=== PATIENT | male | born 1990 | race Hispanic/Latino ===

== ENCOUNTER 2019-10-27 12:09 | Emergency (ER) | payer SELFPAY ==
[2019-10-27 14:17] LABS: Absolute Lymphocytes (CBC) 2.4 K/uL (0.7-4.9); Basophils % 0.9 % (0-1.3); Lymphocytes % 38.5 % (15.3-44.8); MPV 10.3 fL (7.6-11.3); RBC Red Blood Cell Count 4.56 M/uL (4.33-5.43)
[2019-10-27 14:20] LABS: Protime INR 0.97
--- NOTE | 2019-10-27 14:26 | RAD REPORT ---
EXAM DESCRIPTION: RAD - Chest Single View - 10/27/2019 2:18 pm CLINICAL HISTORY: CHEST PAIN TECHNIQUE: AP portable chest image was obtained 10/27/2019 2:18 pm . FINDINGS: Lungs are clear. Heart and vasculature are normal. No measurable pleural effusion and no p neumothorax. No acute bony abnormality seen. No acute aortic findings suspected. IMPRESSION: No acute cardiopulmonary process.
[2019-10-27 14:43] LABS: ALT/SGPT 37 U/L (12-78); AST/SGOT 20 U/L (15-37); Albumin 4.1 g/dL (3.4-5.0); Alkaline Phosphatase 73 U/L (45-117); BUN Blood Urea Nitrogen 17 mg/dL (7-18); Bicarbonate 28 mmol/L (21-32); Bilirubin Direct < 0.1 mg/dL (0-0.2); Bilirubin Total 0.4 mg/dL (0.2-1.0); Glucose Level 90 mg/dL (74-106); Magnesium 2.4 mg/dL (1.8-2.4); NT PRO-BNP 8 pg/mL (<125); Potassium 3.6 mmol/L (3.5-5.1); Protein, Total 7.5 g/dL (6.4-8.2); Sodium Level 142 mmol/L (136-145); Troponin (Emerg Dept Use Only) < 0.02 ng/mL (0.0-0.045)
--- NOTE | 2019-10-27 15:42 | EDPHYS ---
Physician Documentation [facility] Name: Jai Alvarez Age: 29 yrs Sex: Male : 1990 Arrival Date: 10/27/2019 Time: 12:12 Bed 25 Private MD: ED Physician Clark Pablo HPI: 10/26 15:32 This 29 yrs old Male presents to ER via Ambulatory with complaints of Chest [facility] Pain. 15:32 The patient or guardian reports chest pain that is located primarily in the anterior [facility] chest wall. The pain radiates to the left scapula. Associated signs and symptoms: Pertinent negatives: abdominal pain, recent travel, shortness of breath, vomiting. The chest pain is described as aching, sharp. Duration: The patient or guardian reports a single episode, that is still ongoing. This is a 29 year old male with no chronic medical conditions that presents to the ED with complaints of left anterior chest pain which worsen on deep inspiration and movement of the left arm. 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 Denies recent surgery, leg swelling, hemoptysis, exogenous estrogen use. . Historical: - Allergies: 13:00 No Known Allergies; ca1 - Home Meds: 13:00 None [Active]; ca1 - PMHx: 13:00 None; ca1 - PSHx: 13:00 Cholecystectomy; ca1 - Immunization history:: Adult Immunizations. - Social history:: Smoking status: Patient reports the use of cigarette tobacco products, denies chronic smoking, but will smoke occasionally. ROS: 15:32 Constitutional: Negative for fever, chills, and weight loss. jmm 15:32 Respiratory: Negative for shortness of breath, cough, wheezing, and pleuritic chest pain, Abdomen/GI: Negative for abdominal pain, nausea, vomiting, diarrhea, and constipation, Neuro: Negative for headache, weakness, numbness, tingling, and seizure. 15:32 Cardiovascular: Positive for chest pain. 15:32 All other systems are negative. Exam: 15:32 Constitutional: This is a well developed, well nourished patient who is awake, alert, jmm and in no acute distress. Head/Face: atraumatic. Eyes: EOMI, no conjunctival erythema appreciated ENT: Moist Mucus Membranes Neck: Trachea midline, Supple Chest/axilla: Normal chest wall appearance and motion. 15:32 Abdomen/GI: Non distended, soft Back: Normal ROM Skin: General appearance color normal MS/ Extremity: Moves all extremities, no obvious deformities appreciated, no edema noted to the lower extremities Neuro: Awake and alert, normal gait Psych: Behavior is normal, Mood is normal, Patient is cooperative and pleasant 15:32 Chest/axilla: chest pain is reproduce able on movement of the arm, scapular pain is reproduced by movement of the arm. . 15:32 Cardiovascular: Rate: normal, Rhythm: regular. 15:32 Respiratory: the patient does not display signs of respiratory distress, Respirations: normal, Breath sounds: are clear throughout. 15:32 ECG was reviewed by the Attending Physician. [facility] Vital Signs: 12:55 BP 118 / 70; Pulse 64; Resp 15 S; Temp 97.7(TE); Pulse Ox 98% on R/A; Weight 104.33 kg ca1 (R); Height 6 ft. 1 in. (185.42 cm) (R); Pain 5/10; 13:46 BP 118 / 83; Pulse 49; Resp 17 S; Pulse Ox 95% on R/A; Pain 5/10; jl7 14:11 BP 121 / 84; Pulse 56; Resp 17; Pulse Ox 97% ; Pain 5/10; ca1 15:05 BP 120 / 82; Pulse 71; Resp 17; Pulse Ox 98% ; Pain 3/10; jl7 15:30 BP 127 / 83; Pulse 86; Resp 17; Pulse Ox 96% ; jl7 12:55 Body Mass Index 30.34 (104.33 kg, 185.42 cm) ca1 MDM: 15:22 Patient medically screened. [facility] 15:39 Data reviewed: vital signs, nurses notes. Counseling: I had a detailed discussion with [facility] the patient and/or guardian regarding: the historical points, exam findings, and any diagnostic results supporting the discharge/admit diagnosis, lab results, radiology results, the need for outpatient follow up, to return to the emergency department if symptoms worsen or persist or if there are any questions or concerns that arise at home. ED course: PERC NEGATIVE. Low likelihood for ACS. Pain is most likely MS. Patient advised to follow up with cardio for further evaluation and otherwise given strict return precautions. Patient understood and agrees with the plan of care. . 10/26 13:48 Order name: Basic Metabolic Panel; Complete Time: 15:10/26 13:48 Order name: CBC with Diff; Complete Time: :10/26 13:48 Order name: LFT's; Complete Time: 15:10/26 13:48 Order name: Magnesium; Complete Time: 15:10/26 13:48 Order name: NT PRO-BNP; Complete Time: 15:10/26 13:48 Order name: PT-INR; Complete Time: 15:10/26 13:01 Order name: EKG; Complete Time: 13:10/26 13:01 Order name: EKG - Nurse/Tech; Complete Time: 13:10/26 13:48 Order name: Troponin (emerg Dept Use Only); Complete Time: 15:10/26 13:48 Order name: XRAY Chest (1 view); Complete Time: 15:10/26 13:48 Order name: Cardiac monitoring; Complete Time: 14:10/26 13:48 Order name: IV Saline Lock; Complete Time: 14:10/26 13:48 Order name: Labs collected and sent; Complete Time: 14:10/26 13:48 Order name: O2 Per Protocol; Complete Time: 14:10/26 13:48 Order name: O2 Sat Monitoring; Complete Time: 14: EC:32 Rate is 59 beats/min. QRS Cameron is Normal. ME interval is normal. QRS interval is jmm normal. QT interval is normal. No Q waves. T waves are Normal. No ST changes noted. Reviewed by me. Administered Medications: No medications were administered Disposition: 10/27 08:06 Co-signature as Attending Physician, Clark Pablo MD I agree with the assessment and kdr plan of care. Disposition: 10/27/19 15:41 Discharged to Home. Impression: Chest pain, unspecified. - Condition is Stable. - Discharge Instructions: Nonspecific Chest Pain. - Prescriptions for orphenadrine citrate 100 mg Oral Tablet Sustained Release - take 1 tablet by ORAL route 2 times per day As needed; 20 tablet. Medrol (Ryan) 4 mg Oral Tablets, Dose Pack - take 1 tablet by ORAL route as directed - follow package instructions; 1 packet. - Medication Reconciliation Form, Thank You Letter, Antibiotic Education, Prescription Opioid Use, Work release form form. - Follow up: Venkat Johnson MD; When: 2 - 3 days; Reason: Recheck today's complaints, Continuance of care, Re-evaluation by your physician. Signatures: Dispatcher [employer] EDMS Clark Pablo MD MD kdr Mickail, Joel, PA PA jmm Leal, Jahala, RN RN jl7 Belinda Hartman RN RN ca1 Corrections: (The following items were deleted from the chart) 10/26 16:05 15:41 10/27/2019 15:41 Discharged to Home. Impression: Chest pain, unspecified. jl7 Condition is Stable. Forms are Medication Reconciliation Form, Thank You Letter, Antibiotic Education, Prescription Opioid Use. Follow up: Venkat Johnson; When: 2 - 3 days; Reason: Recheck today's complaints, Continuance of care, Re-evaluation by your physician. zoraida
--- NOTE | 2019-10-27 15:42 | ER ---
Nurse's Notes [facility] Name: Jai Alvarez Age: 29 yrs Sex: Male : 1990 Arrival Date: 10/27/2019 Time: 12:12 Bed 25 Private MD: Diagnosis: Chest pain, unspecified Presentation: 10/26 12:55 Chief complaint: Patient states: Chest pain started at 0745 this morning, worse with ca1 deep breathing and movement. Reports lightheadedness with CP. Denies nausea, sweating. Denies cough, denies injury. Coronavirus screen: Client denies travel out of the [place] in the last 14 days. At this time, the client does not indicate any symptoms associated with coronavirus-19. Ebola Screen: Patient negative for fever greater than or equal to 101.5 degrees Fahrenheit, and additional compatible Ebola Virus Disease symptoms Patient denies exposure to infectious person. Patient denies travel to an Ebola-affected area in the 21 days before illness onset. No symptoms or risks identified at this time. Initial Sepsis Screen: Does the patient meet any 2 criteria? No. Patient's initial sepsis screen is negative. Does the patient have a suspected source of infection? No. Patient's initial sepsis screen is negative. Risk Assessment: Do you want to hurt yourself or someone else? Patient reports no desire to harm self or others. Onset of symptoms was October 27, 2019. 12:55 Method Of Arrival: Ambulatory ca1 12:55 Acuity: ROSCOE 3 ca1 Historical: - Allergies: 13:00 No Known Allergies; ca1 - Home Meds: 13:00 None [Active]; ca1 - PMHx: 13:00 None; ca1 - PSHx: 13:00 Cholecystectomy; ca1 - Immunization history:: Adult Immunizations. - Social history:: Smoking status: Patient reports the use of cigarette tobacco products, denies chronic smoking, but will smoke occasionally. Screenin:40 Abuse screen: Denies threats or abuse. Denies injuries from another. Nutritional ca1 screening: No deficits noted. Tuberculosis screening: No symptoms or risk factors identified. Fall Risk IV access (20 points). Total Keys Fall Scale indicates No Risk (0-24 pts). Assessment: 13:40 General: Appears in no apparent distress. uncomfortable, Behavior is calm, cooperative, ca1 appropriate for age. Pain: Complains of pain in anterior aspect of left upper chest Pain does not radiate. Pain currently is 5 out of 10 on a pain scale. at worst was 8 out of 10 on a pain scale. Quality of pain is described as sharp, Pain began 0745 Is intermittent, Aggravated by increased activity, Taking a deep breath in. Neuro: Level of Consciousness is awake, alert, obeys commands, Oriented to person, place, time, situation. Cardiovascular: Reports chest pain, lightheadedness, Heart tones S1 S2 present Patient's skin is warm and dry. Respiratory: Airway is patent Respiratory effort is even, unlabored, Respiratory pattern is regular, symmetrical, Denies shortness of breath. GI: No signs and/or symptoms were reported involving the gastrointestinal system. Patient currently denies diarrhea, nausea, vomiting. Derm: Skin is pink, warm \T\ dry. 15:05 Reassessment: Patient appears in no apparent distress at this time. No changes from jl7 previously documented assessment. Patient and/or family updated on plan of care and expected duration. Pain level reassessed. Patient is alert, oriented x 3, equal unlabored respirations, skin warm/dry/pink. Patient states symptoms have improved. 15:20 Reassessment: ERP at bedside discussing results and POC. jl7 Vital Signs: 12:55 BP 118 / 70; Pulse 64; Resp 15 S; Temp 97.7(TE); Pulse Ox 98% on R/A; Weight 104.33 kg ca1 (R); Height 6 ft. 1 in. (185.42 cm) (R); Pain 5/10; 13:46 BP 118 / 83; Pulse 49; Resp 17 S; Pulse Ox 95% on R/A; Pain 5/10; jl7 14:11 BP 121 / 84; Pulse 56; Resp 17; Pulse Ox 97% ; Pain 5/10; ca1 15:05 BP 120 / 82; Pulse 71; Resp 17; Pulse Ox 98% ; Pain 3/10; jl7 15:30 BP 127 / 83; Pulse 86; Resp 17; Pulse Ox 96% ; jl7 12:55 Body Mass Index 30.34 (104.33 kg, 185.42 cm) ca1 ED Course: 12:12 Patient arrived in ED. ds1 12:57 Triage completed. ca1 13:00 Arm band placed on right wrist. EKG completed in triage. Results shown to MD. ca1 13:37 Ilana Chauhan, RN is Primary Nurse. jl7 13:40 Patient has correct armband on for positive identification. Placed in gown. Bed in low ca1 position. Call light in reach. Side rails up X2. monitoring and evaluation advisor on. Pulse ox on. NIBP on. 13:47 Winston Luevano PA is PHCP. [facility] 13:47 Clark Pablo MD is Attending Physician. [facility] 14:05 Initial lab(s) drawn, by me, sent to lab. Inserted saline lock: 20 gauge in left wrist, ca1 using aseptic technique. Blood collected. Patient maintains SpO2 saturation greater than 95% on room air. 14:18 XRAY Chest (1 view) In Process Unspecified. EDMS 15:40 Venkat Johnson MD is Referral Physician. [facility] 16:04 No provider procedures requiring assistance completed. IV discontinued, intact, jl7 bleeding controlled, No redness/swelling at site. Pressure dressing applied. Administered Medications: No medications were administered Outcome: 15:41 Discharge ordered by MD. [facility] 16:04 Discharged to home ambulatory. jl7 16:04 Condition: stable 16:04 Discharge instructions given to patient, Instructed on discharge instructions, follow up and referral plans. medication usage, Demonstrated understanding of instructions, follow-up care, medications, Prescriptions given X 2. 16:05 Patient left the ED. jl7 Signatures: Dispatcher [employer] EDMS Winston Luevano PA PA [facility] Vicenta Dyson ds1 Ilana Chauhan, RN RN jl7 Belinda Hartman RN RN ca1
[2019-10-27 16:10] VITALS: TEMP 97.7
[2019-10-27 16:15] VITALS: BP 127/83; O2SAT 96
== END 2019-10-27 16:05 | disposition home or self-care (01) ==
LOC: ER 12:09
DX: R07.9 Chest pain, unspecified (principal); F17.210 Nicotine dependence, cigarettes, uncomplicated
CPT/HCPCS: 36415; 71045; 80048; 80076; 83735; 83880; 84484; 85025; 85610; 93005; 99285